=== PATIENT | female | born 1990 | race Caucasian/White ===

== ENCOUNTER 2017-11-14 03:35 | Inpatient (IN) | payer MEDICAID ==
[~2017-11-14] VITALS: Ht 175.3 cm; Wt 54.0 kg
--- NOTE | 2017-11-14 03:52 | NUR ---
PT CALLED NA.
--- NOTE | 2017-11-14 03:57 | NUR ---
PATIENT LEFT WITHOUT BEING SEEN BY DR. LOPEZ. NO FURTHER CARE PROVIDED FOR PATIENT. PT CALLED X 3. NO ANSWER.
[2017-11-14 04:03] VITALS: BP 113/78
--- NOTE | 2017-11-14 04:08 | NUR ---
PATIENT AMBULATED TO ER BED 10.
--- NOTE | 2017-11-14 04:10 | NUR ---
PATIENT IS A 27 Y/O FEMALE WHO PRESENTS TO THE ED C/O ABSCESS. PT STATES THAT SHE IS A [employer] AND HAS HAD ABSCESSES IN THE PAST. PT REPORTS 8/10 ACHING BODY PAIN THAT DOES NOT RADIATE. PT DENIES CP, SOB, N/V/D. NOTED MULTIPLE ABSCESSES OVER THE BODY OF DIFFERENT SIZES. PT AAOX4, RR EVEN/UNLABORED. PT REPOSITIONED FOR COMFORT, BED IN LOWEST POSITION. ER MD DR. LOPEZ NOTIFIED. WILL CONTINUE TO MONITOR.
[2017-11-14] MEDS ORDERED: PIPERACILLIN/TAZOBACTAM 3.375 GM in DEXTROSE 5% 50 ML IV ONE (04:20)
[2017-11-14] MEDS ORDERED: NACL 0.9% 1,000 ML IV ONE (04:20)
[2017-11-14] MEDS ORDERED: VANCOMYCIN 1,000 MG in DEXTROSE 5% 250 ML IV ONE (04:20)
[2017-11-14] MEDS ORDERED: PIPERACILLIN/TAZOBACTAM 3.375 GM VIAL IV ONE (04:24)
[2017-11-14] MEDS ORDERED: VANCOMYCIN 1,000 MG VIAL ONE (04:24)
[2017-11-14 04:39] LABS: BASOPHILS # (AUTO) 0.1 K/uL (0.00-0.22); BASOPHILS % (AUTO) 0.5 % (0.0-2.0); EOSINOPHILS # (AUTO) 0.1 K/uL (0-0.4); EOSINOPHILS % (AUTO) 0.7 % (0.0-4.0); HEMATOCRIT 35.4 % (36-48); HEMOGLOBIN 11.4 g/dL (12.0-16.0); LYMPHOCYTES # (AUTO) 1.7 K/uL (2.5-16.5); LYMPHOCYTES % (AUTO) 12.7 % (20.5-51.1); MEAN CORPUSCULAR HEMOGLOBIN 26 pg (27-31); MEAN CORPUSCULAR HGB CONC 32 g/dL (33-37); MEAN CORPUSCULAR VOLUME 79.4 fL (80-94); MONOCYTES # (AUTO) 0.7 K/uL (0.8-1.0); MONOCYTES % (AUTO) 5.1 % (1.7-9.3); NEUTROPHILS # (AUTO) 10.8 K/uL (1.8-7.7); PLATELET COUNT (AUTO) 326 K/uL (140-450); RED BLOOD CELL COUNT(AUTO) 4.45 MIL/uL (4.20-5.40); RED CELL DISTRIBUTION WIDTH 14.8 % (11.6-13.7); WHITE BLOOD COUNT (AUTO) 13.4 K/uL (4.8-10.8)
[2017-11-14 04:49] LABS: ANION GAP 15.8 (8-16); CARBON DIOXIDE 26.2 mmol/L (21-32); CREATININE 0.7 mg/dL (0.6-1.3)
--- NOTE | 2017-11-14 04:50 | NUR ---
PATIENT TAKEN TO CT WITH TECH VIA WHEELCHAIR.
--- NOTE | 2017-11-14 05:00 | NUR ---
PATIENT RETURN FROM CT.
[2017-11-14 05:01] LABS: APPEARANCE,URINE CLEAR (CLEAR); BILIRUBIN,URINE NEGATIVE (NEGATIVE); BLOOD, URINE NEGATIVE (NEGATIVE); COLOR,URINE YELLOW (YELLOW); LEUKOCYTE ESTERASE ,URINE NEGATIVE (NEGATIVE); NITRITE, URINE NEGATIVE (NEGATIVE); UGLUCOSE NEGATIVE (NEGATIVE)
[2017-11-14 05:04] LABS: ALBUMIN 3.5 g/dL (3.4-5.0); TOTAL BILIRUBIN 0.2 mg/dL (0.0-1.0)
[2017-11-14 05:07] LABS: BARBITURATE, URINE NEG. ng/ml (NEG <=200); BENZODIAZEPINE, URINE POS. ng/mL (NEG <=200); CANNABINOID, URINE NEG. ng/mL (NEG <=50); COCAINE, URINE NEG. ng/mL (NEG <=300); OPIATE, URINE POS. ng/mL (NEG <=2000); PHENCYCLIDINE SCREEN,URINE NEG. ng/mL (NEG <=25)
[2017-11-14] MEDS ORDERED: ACETAMINOPHEN 325 MG TAB PO PRN (06:10)
[2017-11-14] MEDS ORDERED: ONDANSETRON 4 MG/2 ML VIAL IM/IVP PRN (06:10)
[2017-11-14] MEDS ORDERED: HYDROcodone/APAP 7.5/325 MG 1 TAB PO PRN (06:10)
[2017-11-14] MEDS ORDERED: MORPHINE SULFATE 4 MG/ML SYR IVP PRN (06:10)
[2017-11-14] MEDS ORDERED: NACL 0.9% 1,000 ML IV SCH (06:10)
[2017-11-14] MEDS ORDERED: DOCUSATE SODIUM 100 MG GELCAP PO PRN (06:10)
--- NOTE | 2017-11-14 06:37 | NUR ---
Patient will be admitted to care of DR. ALMEIDA. Admited to TELE. Will go to room 114. Belongings list completed. Report to [facility] RN.
[2017-11-14 07:00] VITALS: BP 108/71
[2017-11-14 07:10] LABS: PROTHROMBIN TIME 10.4 secs (10.8-13.4)
[2017-11-14 07:45] LABS: CHOL/HDL RATIO 2.3 (1-4.5); MAGNESIUM 2.4 mg/dL (1.8-2.4); THYROID STIMULATING HORMONE 1.97 uIU/mL (0.34-3.74)
--- NOTE | 2017-11-14 08:57 | NUR ---
DRUG SUPPLIES WERE SEEN ON PATIENT JACKET POCKET. SECURITY WAS CALLED. DRUG WAS FOUND IN THE PATIENT'S POCKET PER SECURITY AND CHARGE NURSE. PATIENT REFUSED TO HAND IT OVER TO THE SECURITY. PATIENT WAS NOTIFIED THAT PD WOULD BE CALLED IN THAT CASE. PATIENT REQUESTED TO LEAVE AMA, AND REFUSED TO SIGN THE AMA FORM. PATIENT AND PATIENT'S PARTNER WERE ESCORTED OUT BY SECURITY THROUGH EMERGENCY EXIT
--- NOTE | 2017-11-14 09:00 | NUR ---
PATIENT AMA BEFORE ALL THE QUESTIONNAIRES ADMISSION COMPLETED
--- NOTE | 2017-11-14 09:08 | NUR ---
EKG NOT DONE SEE PREVIOUS NOTES AT [id number]
--- NOTE | 2017-11-14 14:47 | NUR ---
CM NOTE RETRO REVIEW FAXED TO [facility] / FAX# [phone]
[2017-11-15 06:22] LABS: T4 (THYROXINE) 7.2 ug/dL (4.5-12.0)
== END 2017-11-14 08:45 | disposition left against medical advice (07) | DRG 383 ==
LOC: MED 03:45 → MTU 06:15
PROVIDERS: ADMIT Family Medicine Sports Medicine; ATTEND Family Medicine Sports Medicine
DX: L02.11 Cutaneous abscess of neck (principal); D64.9 Anemia, unspecified; J45.909 Unspecified asthma, uncomplicated; Z59.0 Homelessness; F19.10 Other psychoactive substance abuse, uncomplicated; Z60.2 Problems related to living alone
CPT/HCPCS: 36415; 70490; 80053; 80305; 81003; 82150; 83036; 83605; 83690; 83735; 83880; 84100; 84436; 84443; 84479; 85025; 85610; 85730; 87040; 87086; 96365; 96367; 99285; J2543; J3370; J7030